=== PATIENT | female | born 1975 | race African-American/Black ===

== ENCOUNTER 2019-11-07 17:03 | Observation (INO) | payer OTHER ==
[~2019-11-07] VITALS: Ht 157.5 cm; Wt 87.1 kg
--- OUTSIDE RECORDS SUMMARY | 2019-11-07 17:06 | XMS REPORT ---
[facility] Address Unknown Phone Unavailable Care Team Providers Care Logistics Team Leader Name Role Phone Unavailable Unavailable Payers Payer Name Policy Type Policy Number Effective Date Expiration Date Problems This patient has no known problems. Allergies, Adverse Reactions, Alerts Allergy Name Allergy Type Status Severity Reaction(s) Onset Date Inactive Date Treating Clinician Comments No Known Allergies DA Active U 2018-07-03 00:00:00 No Known Allergies DA Active U 2012-11-26 00:00:00 Medications This patient has no known medications.
--- OUTSIDE RECORDS SUMMARY | 2019-11-07 17:06 | XMS REPORT | Summary of Care ---
Author Author [facility] Organization [facility] - [facility] Address Unknown Phone Unavailable Care Team Providers Care Gear Repair Supervisor Name Role Phone Jaime Saul MD PCP Reason for Visit * Reason Comments Refill Request Encounter Details Care Team Description Date Type Department Jaime Saul MD [address] [place] [address] [phone] Refill Request 05/27/2019 Refill [facility], [address] [id number] Allergies No Known Allergiesdocumented as of this encounter (statuses as of 05/28/2019) Medications End Date Status Medication Sig Dispensed Refills Start Date Active albuterol (PROVENTIL HFA) Inhale 2 0 90 mcg/actuation inhaler Puffs as 4 needed. Active hydroCHLOROthiazide 12.5 Take 12.5 mg 0 mg capsule by mouth 4 daily. Active biotin 5,000 mcg TbDL Take by 0 mouth. Active amlodipine-benazepril Take 1 90 capsule 2 10-40 mg per capsule by 9 capsuleIndications: mouth daily. General medical examination Active KCL 10 mEq TAKE ONE (1) 30 tablet 0 tabletIndications: TABLET(S) BY 9 Essential hypertension, MOUTH DAILY. benign 05/27/2019 Discontinued KCL 10 mEq TAKE ONE (1) 30 tablet 0 tabletIndications: TABLET(S) BY 9 Essential hypertension, MOUTH DAILY. benign documented as of this encounter (statuses as of 05/28/2019) Active Problems No known active problemsdocumented as of this encounter (statuses as of 05/28/2019) Immunizations Name Administration Dates Next Due Influenza Virus Vaccine 07/04/2017, 06/03/2016 Quad IM 3+ YRS Pneumococcal 13 07/06/2016 Conjugate, PCV13 (Prevnar 13) Pneumococcal 11/03/2015 Polysaccharide, PPSV23 (PNEUMOVAX) Td 05/07/2003 Tdap 02/04/2015 documented as of this encounter Social History Date Tobacco Use Types Packs/Day Years Used Never Smoker Smokeless Tobacco: Never Used Drinks/Week oz/Week Comments Alcohol Use No Sex Assigned at Date Recorded Not on file Industry Job Start Date Occupation Not on file Not on file Not on file Travel End Travel History Travel Start No recent travel history available. documented as of this encounter Last Filed Vital Signs Not on filedocumented in this encounter Plan of Treatment Health Maintenance Due Date Last Done Comments PAP SMEAR 1996 MAMMOGRAM 2015 INFLUENZA VACCINE (#1) 2019 07/04/2017, 06/03/2016 DTaP,Tdap,and Td Vaccines 02/04/2025 02/04/2015, 05/07/2003 (2 - Td) PNEUMOCOCCAL 0-64 YEARS Aged Out 07/06/2016, 11/03/2015 No longer eligible based COMBINED SERIES on patient's age to complete this topic documented as of this encounter Results Not on filedocumented in this encounter Visit Diagnoses Diagnosis Essential hypertension, benign documented in this encounter Insurance Type Payer Benefit Subscriber ID Effective Phone Address Plan / Dates Group PPO/POS [employer] [place] [employer] [place] [id number] 2017-P [phone] [address] [facility] [id number] [place] [address] documented as of this encounter
[2019-11-07] MEDS ORDERED: ASPIRIN 81 MG CHEW TAB PO STA (17:19)
[2019-11-07] MEDS ORDERED: NITROGLYCERIN 2% OINT 1 GM PKT ONE (17:29)
[2019-11-07] MEDS ORDERED: NITROGLYCERIN 2% OINT 1 GM PKT TOP ONE (17:30)
[2019-11-07] MEDS ORDERED: ONDANSETRON HCL INJ 2MG/ML 2ML 2 MG/ML VIAL IV PRN (18:00)
[2019-11-07] MEDS ORDERED: SODIUM CHLORIDE FLUSH 10 ML SYR INJ PRN (18:00)
[2019-11-07] MEDS ORDERED: NITROGLYCERIN 0.4 MG SUBL SL PRN (18:00)
[2019-11-07] MEDS ORDERED: ASPIRIN 81 MG CHEW TAB PO ONE (18:00)
[2019-11-07] MEDS: NITROGLYCERIN 2% OINT 1 GM PKT TOP SCH ×2 (18:12→23:19)
[2019-11-07] MEDS: FAMOTIDINE 20 MG TAB PO SCH (18:15)
[2019-11-07] MEDS ORDERED: FAMOTIDINE 20 MG TAB ONE (18:18)
--- NOTE | 2019-11-07 18:54 | NUR ---
Called [facility] for transport to room 299
--- NOTE | 2019-11-07 19:03 | NUR ---
Report to MUNA Ryan
[2019-11-07 20:20] VITALS: BP 125/76
--- NOTE | 2019-11-07 20:20 | NUR ---
patient is a new admit that arrived via stretcher. patient is awake and oriented. patient has been helped into the bed. bed is in lowest position and call jovel is within reach. denies pain or discomfort at this time. patient has been educated on the use of the call jovel. cardiac monitor is attached to patient. will continue to monitor patient.
[2019-11-07 20:53] VITALS: BP 125/76
[2019-11-07] MEDS ORDERED: HYDROCHLOROTHIA25 MG PO (21:47)
[2019-11-07] MEDS ORDERED: AMLODIPINE BESY10 MG PO (21:47)
[2019-11-07] MEDS ORDERED: BENAZEPRIL HCL10 MG PO (21:48)
[2019-11-07 21:54] LABS: CREATINE KINASE 123 IU/L (29-168)
--- NOTE | 2019-11-07 22:00 | NUR ---
patient is complaining of pain 8/10 in the head. MD notified. received new order for 800mg Motrin po Q 8hours as needed for pain.
[2019-11-07] MEDS ORDERED: IBUPROFEN 200 MG TAB PO PRN (22:45)
[2019-11-08] VITALS (9 sets, daily range): BP systolic 111–154; BP diastolic 65–89
--- NOTE | 2019-11-08 00:56 | Diagnostic Imaging Report ---
EXAMINATION: Chest PA and lateral views INDICATION: Chest pain. COMPARISON: None FINDINGS: Examination became available for interpretation at 12:52 AM on 11/08/2019. TUBES and LINES: None. LUNGS: Lungs are well inflated. There are bibasilar atelectasis. There is no evidence of pneumonia or pulmonary edema. PLEURA: No pleural effusion or pneumothorax. HEART AND MEDIASTINUM: The cardiomediastinal silhouette is unremarkable. BONES AND SOFT TISSUES: No acute osseous lesion. Soft tissues are unremarkable. UPPER ABDOMEN: No free air under the diaphragm. IMPRESSION: No acute thoracic abnormality. Signed by: Dr. Bushra Cesar M.D. on 11/08/2019 12:53 AM
[2019-11-08 03:02] LABS: CREATINE KINASE 94 IU/L (29-168)
[2019-11-08] MEDS: NITROGLYCERIN 2% OINT 1 GM PKT TOP SCH ×3 (05:24→18:00)
--- NOTE | 2019-11-08 06:50 | NUR ---
patient is resting comfortably in bed. bed is in lowest position and call light is within reach.
[2019-11-08 07:23] LABS: BASOPHILS % 0.6 % (0.0-1.0); EOSINOPHILS # (AUTO) 0.1 (0.0-0.4); EOSINOPHILS % 1.1 % (0.0-6.0); HEMATOCRIT 39.6 % (34.2-44.1); LYMPHOCYTES # (AUTO) 2.5 (1.0-3.2); LYMPHOCYTES % 35.6 % (18.0-39.1); MEAN CORPUSCULAR HEMOGLOBIN 28.4 pg (28-32); MEAN CORPUSCULAR HGB CONC 32.8 g/dL (31-35); MEAN CORPUSCULAR VOLUME 86.7 fL (81-99); MONOCYTES # (AUTO) 0.6 (0.2-0.8); MONOCYTES % 8.1 % (4.4-11.3); NEUTROPHILS # (AUTO) 3.8 (2.1-6.9); NEUTROPHILS % 54.3 % (38.7-80.0); PLATELET COUNT 350 x10e3/uL (140-360); RED BLOOD COUNT 4.57 x10e6/uL (3.6-5.1); RED CELL DISTRIBUTION WIDTH 11.8 % (11.7-14.4)
--- NOTE | 2019-11-08 07:30 | NUR ---
PATIENT AMBULATED TO THE RESTROOM AND BACK TO BED, NO DISTRESS NOTED. DENIED PAIN AT THIS TIME. BED IN LOWER POSITION, CALL LIGHT AT REACH.
[2019-11-08 08:04] LABS: ANION GAP 15.5 mmol/L (8-16); BLOOD UREA NITROGEN 9 mg/dL (7-26); BUN/CREATININE RATIO 13 (6-25); CARBON DIOXIDE 21 mmol/L (22-29); CHLORIDE 101 mmol/L (98-107); CHOL/HDL RATIO 4.2 (3.0-3.6); CHOLESTEROL 195 MD/DL (0-199); CREATININE, SERUM 0.71 mg/dL (0.57-1.11); EST GLOMERULAR FILTRATION RATE > 60 ML/MIN (60-); GLUCOSE 106 mg/dL (74-118); HDL CHOLESTEROL 46 MG/DL (40-60); LDL CHOLESTEROL 137 MG/DL (60-130); POTASSIUM 3.5 mmol/L (3.5-5.1); SODIUM 134 mmol/L (136-145); TRIGLYCERIDES 61 MG/DL (0-149)
[2019-11-08] MEDS: FAMOTIDINE 20 MG TAB PO SCH ×2 (08:20→17:00)
[2019-11-08] MEDS: ASPIRIN 81 MG ENTERIC COATED PO SCH (09:13)
[2019-11-08 10:50] LABS: CREATINE KINASE 93 IU/L (29-168)
--- NOTE | 2019-11-08 11:26 | NUR ---
PATIENT SITTING AT BED SIDE TALKING TO FAMILY MEMBER VISITING, CALL LIGHT AT REACH.
[2019-11-08] MEDS: BENAZEPRIL HCL 10 MG TAB PO SCH (15:10)
[2019-11-08] MEDS: HYDROCHLOROTHIAZIDE 25 MG TAB PO SCH (17:00)
--- NOTE | 2019-11-08 19:26 | NUR ---
report received from day nurse. bedside shift report is complete. patient is resting in bed. bed is in lowest position and call light is within reach. will continue to monitor patient.
--- NOTE | 2019-11-08 19:31 | History and Physical ---
PCP: Dr. Burnette at [facility]. CHIEF COMPLAINT: Chest tightness, shortness of breath, and back pain. HISTORY OF PRESENT ILLNESS: This is a 44-year-old female with past medical history of asthma and high blood pressure, presented to the ER with complaints of chest pain, shortness of breath, radiating to her back and jaw. She reports pain started 3 days ago and has been on and off until arrival to the ER. She denies any fever, chills, cough, diaphoresis, dizziness, palpitations, abdominal pain, nausea, or vomiting. She denies abdominal pain or left arm tingling or numbness. She reports taking her blood pressure medication as prescribed, amlodipine, benazepril, and hydrochlorothiazide. She reports her mother of heart attack at the age of 45. In ER, blood pressure was 174/131, chest x-ray was negative for acute process. We will admit the patient for further workup of chest pain. PAST MEDICAL HISTORY: 1. Asthma. 2. Hypertension. PAST SURGICAL HISTORY: Reports hysterectomy and breast reduction. FAMILY MEDICAL HISTORY: Mother of a heart attack at age of 45. Her father had stroke and high blood pressure. She denies any tobacco, alcohol, or street drug use. ALLERGIES: SHE HAS NO KNOWN DRUG ALLERGIES. REVIEW OF SYSTEMS: GENERAL: Fatigue. HEENT: No head trauma. LUNGS: Shortness of breath. CARDIOVASCULAR: Chest pain or tightness. GI: No nausea or vomiting. NEURO: No dizziness. MUSCULOSKELETAL: No edema. SKIN: No rash. PHYSICAL EXAMINATION: VITAL SIGNS: Temperature 97.1, pulse is 78, respirations 18, blood pressure 130/79, and pulse ox is 97% on room air. GENERAL: No acute distress. HEENT: Normocephalic and atraumatic. NECK: Supple. LUNGS: Clear to auscultation. CARDIOVASCULAR: Regular rate and rhythm. GI: Soft and nontender. NEUROLOGIC: Alert, awake, and oriented x3. MUSCULOSKELETAL: Moves all extremities. SKIN: Dry and intact. PSYCH: Calm. LABORATORY DATA: WBC 7.05, hemoglobin 13.0, hematocrit 39.6, and platelet 350. Sodium 134, potassium 3.5, BUN is 9, creatinine 0.71, and estimated GFR is 60. Troponin 0.001 x3. Triglycerides 61, LDL 137, and HDL 46. IMPRESSION: 1. Chest pain with shortness of breath. We will rule out acute coronary syndrome. Troponins trended, we will check echocardiogram, monitor on tele, and we will have Cardiology evaluate her due to her strong family history. 2. Hypertension. We will resume home medication. 3. History of asthma. We will resume albuterol as needed. 4. High cholesterol. LDL is 137. We will start on Lipitor 20 mg at bedtime and instructed the patient about lifestyle modifications. 5. Deep vein thrombosis prophylaxis. SCDs, as she is ambulatory. PLAN: To continue telemonitor, we will check echo and TSH, we will have Cardiology evaluate. Dictated by KAYLEIGH Watson Genesis Perea MD MY/MODL /[id number]
[2019-11-08] MEDS ORDERED: ATORVASTATIN 20 MG TAB PO SCH (21:00)
[2019-11-09 01:13] VITALS: BP 112/76
[2019-11-09 05:12] VITALS: BP 115/89
[2019-11-09] MEDS: NITROGLYCERIN 2% OINT 1 GM PKT TOP SCH ×3 (05:15→12:00)
--- NOTE | 2019-11-09 06:32 | NUR ---
patient is resting in bed. bed is in lowest position and call jovel is within reach.
--- NOTE | 2019-11-09 07:21 | NUR ---
PATIENT SITTING UP IN BED TALKING ON THE PONE, NO COMPLAIN VOICED. BED IN LOWER POSITION, CALL LIGHT AT REACH.
[2019-11-09 08:11] VITALS: BP 166/82
[2019-11-09] MEDS: FAMOTIDINE 20 MG TAB PO SCH ×2 (08:30→16:57)
[2019-11-09 08:35] VITALS: BP 166/82
[2019-11-09] MEDS: BENAZEPRIL HCL 10 MG TAB PO SCH (09:16)
[2019-11-09] MEDS: HYDROCHLOROTHIAZIDE 25 MG TAB PO SCH (09:16)
[2019-11-09] MEDS: ASPIRIN 81 MG ENTERIC COATED PO SCH (09:17)
[2019-11-09 09:19] LABS: ANION GAP 14.9 mmol/L (8-16); BLOOD UREA NITROGEN 8 mg/dL (7-26); BUN/CREATININE RATIO 11 (6-25); CALCIUM 9.4 mg/dL (8.4-10.2); CARBON DIOXIDE 25 mmol/L (22-29); CHLORIDE 99 mmol/L (98-107); CREATININE, SERUM 0.72 mg/dL (0.57-1.11); EST GLOMERULAR FILTRATION RATE > 60 ML/MIN (60-); GLUCOSE 102 mg/dL (74-118); POTASSIUM 3.9 mmol/L (3.5-5.1); SODIUM 135 mmol/L (136-145)
[2019-11-09 09:41] LABS: FREE THYROXINE INDEX 2.5913 (1.4-3.8); THYROID STIMULATING HORMONE 2.336 uIU/mL (0.350-4.940)
[2019-11-09 12:05] VITALS: BP 127/82
--- NOTE | 2019-11-09 15:45 | NUR ---
SPOKE WITH CARDIOLOGY, HE WILL BE IN TO SEE PATIENT IN 1-2 HOURS. PATIENT NOTIFIED.
[2019-11-09 16:14] VITALS: BP 120/92
[2019-11-09] MEDS ORDERED: ASPIRIN EC81 MG PO (17:55)
--- NOTE | 2019-11-09 18:59 | Discharge Summary ---
PRIMARY CARE PHYSICIAN: Dr. Chandler at [facility]. FINAL DIAGNOSES: 1. Chest pain rule out acute coronary syndrome. 2. Hypertension. 3. History of asthma. 4. High cholesterol. CONSULTANTS: Cardiology, Dr. Moulton. PROCEDURES: Echocardiogram. HISTORY: Per HPI. HOSPITAL COURSE: This is a 44-year-old female with past medical history of hypertension and asthma, presented to the ER with complaints of chest pain and shortness of breath with radiation to her back, jaw for a few days on an off. Upon arrival, her blood pressure was elevated at 174/131. Cardiac enzymes x3 were negative, echocardiogram ordered. Cardiology was consulted due to her strong family history of heart attack. Her mother of heart attack at age of 45. She was offered to have stress test, but did not want to stay any longer as the symptoms have resolved. She wanted to follow up with her primary care doctor and her product design manager at [facility] for repeat stress test. She reported she had stress test done last year routinely, which was negative per patient. PHYSICAL EXAMINATION: VITAL SIGNS: Temperature 97.0, pulse is 94, respirations 18, blood pressure 120/92, pulse ox 96% on room air. GENERAL: No acute distress. HEENT: Normocephalic, atraumatic. NECK: Supple. LUNGS: Clear to auscultation. CARDIOVASCULAR: Regular rate and rhythm. GI: Soft and nontender. NEUROLOGIC: Alert, awake, and oriented x3. MUSCULOSKELETAL: Moves all extremities. SKIN: Dry and intact. PSYCH: Calm. CONDITION AT DISCHARGE: Stable and improved. DISCHARGE MEDICATIONS: See medication reconciliation list. FOLLOWUP: Follow up with PCP and Cardiology in 1 week. TIME SPENT: Total time of discharge is 33 minutes. Dictated by KAYLEIGH Watson Genesis Perea MD MY/MODL /[id number] cc: Dr. Chandler
--- NOTE | 2019-11-09 19:05 | NUR ---
PATIENT DISCHARGED HOME. DISCHARGE INSTRUCTIONS, PRESCRIPTIONS, AND FOLLOW UP GIVEN TO PATIENT, SHE VERBALIZED UNDERSTANDING. IV TO LEFT AC REMOVED WITH TIP INTACT. ALL PERSONAL ITEMS TAKEN WITH PATIENT. REFUSED WHEEL CHAIR, BUT WAS ACCOMPANIED BY HOSPITAL STAFF TO FRONT LOBBY IN STABLE CONDITION.
--- NOTE | 2019-11-10 09:37 | Consultation ---
DATE OF CONSULTATION: 11/09/2019 REASON FOR CONSULTATION: Chest pain. HISTORY OF PRESENT ILLNESS: A 44-year-old pleasant woman with history of hypertension, asthma, and family history positive for early onset coronary artery disease, presents with complaints of episodes of midsternal chest pressure, radiating to left neck and back, lasting hours at a time, occurring while at rest, associated with mild shortness of breath without exacerbation with changes in position, inspiration, meals, or exertion. Symptoms have been recurrent for the last 3 days. Serial cardiac biomarkers have been negative for AMI. EKG shows sinus rhythm with poor R-wave progression in precordial leads. Echocardiogram is remarkable for preserved left ventricular systolic function, normal regional wall motion, and mild left ventricular hypertrophy. Chest x-ray was unremarkable for acute findings and telemetry has shown predominant sinus rhythm. Symptoms have resolved and the patient currently has no complaints. REVIEW OF SYSTEMS: A 12-system review is negative except for as noted above. ALLERGIES: NO KNOWN DRUG ALLERGIES. PAST MEDICAL HISTORY: Remarkable for hypertension and asthma. SOCIAL HISTORY: Negative for smoking, alcohol, or drugs. FAMILY HISTORY: Remarkable for mother with OR and stent in the mid 40s. PHYSICAL EXAMINATION: VITAL SIGNS: Temperature 97 degrees, heart rate 94, blood pressure 120/92, respiratory rate 18, and O2 saturation 96%. BMI 35. GENERAL: In no acute distress. Alert. NECK: No JVD. CHEST: Clear to auscultation. CARDIOVASCULAR: Regular rate and rhythm. Normal S1 and S2. No S3 or S4. No murmurs or rubs. ABDOMEN: Soft. Bowel sounds positive. EXTREMITIES: No edema, cyanosis, or clubbing. Warm distal extremities. CARDIOVASCULAR MEDICATIONS: Have been reviewed. Atorvastatin 20 mg at bedtime, hydrochlorothiazide 12.5 mg daily, and benazepril 40 mg daily. STUDIES: Reviewed. Creatinine 0.7. Hemoglobin is 13 and platelets 350. ASSESSMENT AND PLAN: 1. Atypical chest discomfort. Family history positive for early onset coronary artery disease. 2. Dilated ascending aorta at sinus of Valsalva at 4.0 cm without any evidence of dissection on echocardiogram. 3. Hypertension. 4. Asthma. 5. Dyslipidemia. RECOMMEND: I have advised the patient on proceeding with further risk stratification with stress test. The patient does not want to proceed with testing in-house and voices preference to proceed with outpatient testing instead. She has been ruled out for AMI. Symptoms have resolved. Addition of aspirin 81 mg daily, metoprolol 25 mg at bedtime, prescriptions provided. Alarm signs also discussed for the patient to call 911 and proceed to nearest ER should condition worsen or recur. Advised on stress test within the following week. Thank you for the opportunity to participate in the care of this patient. MD LILIAN Hall/JONELLE /[id number]
== END 2019-11-09 19:08 | disposition home or self-care (01) ==
LOC: FSED 17:03 → ERHOLD 18:04 → MED/SURG3 20:25
PROVIDERS: ADMIT Internal Medicine; ATTEND Internal Medicine
DX: R07.9 Chest pain, unspecified (principal); I10 Essential (primary) hypertension; E78.00 Pure hypercholesterolemia, unspecified; J45.909 Unspecified asthma, uncomplicated; Z82.49 Family history of ischemic heart disease and other diseases of the circulatory system; R07.89 Other chest pain; I71.02 Dissection of abdominal aorta
CPT/HCPCS: 36415 ×3; 71046; 80048 ×3; 80061; 80076; 82550 ×2; 82553 ×2; 84436; 84443 ×2; 84479; 84484 ×2; 85025 ×2; 93005; 93306; 99284; G0378 ×3; J2405